=== PATIENT | male | born 1950 | race Caucasian/White ===

== ENCOUNTER 2024-01-10 10:05 | Inpatient (IN) | payer MEDICARE ==
[~2024-01-10] VITALS: Ht 172.7 cm; Wt 78.4 kg
[2024-01-10] VITALS (7 sets, daily range): BP systolic 117–145; BP diastolic 72–83; PULSE 64–82; TEMP 98.2–98.9
--- NOTE | 2024-01-10 09:40 | NUR ---
PT ARRIVES TO ICU 1 VIA EMS FROM [facility] ED. PT BEING ADMITTED FOR UROSEPSIS. UPON ARRIVAL PT IS ALERT AND ORIENTED. ABLE TO WALK FROM STRETCHER TO BED. PIV TO RIGHT AC; SALINE LOCKED. VITAL SIGNS STABLE. PT ARRIVED WITH CLOTHING BUT NO OTHER BELONINGS. PT DENIES PAIN AT THIS TIME BUT DOES COMPLAIN OF FEELING UNWELL OVERALL. ATTEMPTED TO VOID BUT WAS UNSUCCESSFUL. PT INSTRUCTED TO CALL FOR ASSISTANCE; CALL LIGHT IN REACH AND BED ALARM ON. DR. LUIS AWARE OF PT'S ARRIVAL.
[2024-01-10] MEDS ORDERED: LASIX 40MG TABL40 MG PO (11:30)
[2024-01-10] MEDS ORDERED: ATIVAN 0.50.5 MG/TAB PO (11:31)
[2024-01-10] MEDS ORDERED: PRIL40 PO (11:32)
[2024-01-10] MEDS ORDERED: METHADONE H10 MG/TAB PO (11:32)
[2024-01-10] MEDS ORDERED: PROZAC40 MG PO (11:33)
[2024-01-10] MEDS ORDERED: LIPITOR20 MG PO (11:33)
[2024-01-10] MEDS ORDERED: ZOFRAN ODT4 MG PO (11:34)
[2024-01-10] MEDS ORDERED: INSLANT SQ (11:34)
[2024-01-10] MEDS ORDERED: COREG 6.256.25 MG/TA PO (11:35)
[2024-01-10] MEDS ORDERED: PLAVIX 75MG TAB75 MG PO (11:36)
[2024-01-10] MEDS ORDERED: BC PAIN RLF 841 EACH PO (11:38)
[2024-01-10 13:22] LABS: HEMOGLOBIN 10.1 g/dl (13.5-18.0); MEAN CELL VOLUME 71 fl (80.0-100.0); MEAN CORPUSCULAR HEMOGLOBIN 22 pg (27-31); MEAN CORPUSCULAR HGB CONC 32 g/dl (33.0-37.0); MEAN PLATELET VOLUME 10.7 fl (7.4-10.4); PLATELET COUNT 151 K/mm3 (130-400); RED BLOOD COUNT 4.51 M/mm3 (4.20-5.60)
[2024-01-10 13:25] LABS: HEMATOCRIT 31.8 % (42.0-52.0)
[2024-01-10 13:37] LABS: CALCIUM 8.8 mg/dL (8.4-10.2); CREATININE, serum 4.31 mg/dL (0.72-1.25)
[2024-01-10] MEDS ORDERED: Furosemide 40 MG TAB PO SCH (13:50)
[2024-01-10] MEDS ORDERED: Clopidogrel 75 MG TAB PO SCH (13:50)
[2024-01-10] MEDS ORDERED: FLUoxetine 20 MG CAP PO SCH (13:50)
[2024-01-10] MEDS ORDERED: cefTRIAXone 1 G in Water For Injection,Sterile 10 ML IV SCH (14:00)
[2024-01-10] MEDS ORDERED: Heparin 1,000 UNITS/ML 10 ML Multi-Dose VIAL ICA SCH (16:15)
[2024-01-10] MEDS ORDERED: Heparin 1,000 UNITS/ML 10 ML Multi-Dose VIAL IV SCH (16:15)
[2024-01-10] MEDS ORDERED: Acetaminophen 325 MG TAB PO PRN (16:45)
[2024-01-10] MEDS ORDERED: Ondansetron 4 MG/2 ML VIAL IV PRN (16:45)
[2024-01-10] MEDS ORDERED: Carvedilol 6.25 MG TAB PO SCH (17:00)
[2024-01-10] MEDS ORDERED: Insulin Lispro (HumaLOG) SQ SCH ×2 (17:10→18:00)
[2024-01-10] MEDS ORDERED: Methadone 10 MG TAB PO PRN (17:15)
[2024-01-10] MEDS ORDERED: Dextrose (Glucose) 15 GM (4 x 3.75 GM) Chewable TABLET PACK PO PRN (17:30)
[2024-01-10] MEDS ORDERED: Glucagon 1 MG VIAL IM PRN (17:30)
[2024-01-10] MEDS ORDERED: Dextrose 50% Water 25 GM/50 ML SYRINGE IV PRN (17:30)
--- NOTE | 2024-01-10 18:00 | NUR ---
Pt up recently from ICU. Pt has had dinner already, stated it didn't taste very good. Informed him that he still has time to order again if he would like something different. Educated him on room service and diet order. Pt having complaints of pain in his back which he states is chronic, PRN pain medication given. Pt is up and steady on his feet. Had pt ambulate some in the halls to ensure his safety. No issues noted.
[2024-01-10 18:05] LABS: URINE APPEARANCE TURBID (CLEAR/HAZY); URINE BLOOD 1+ (NEGATIVE); URINE COLOR YELLOW (YELLOW); URINE GLUCOSE TRACE (NEGATIVE); URINE KETONE NEGATIVE (NEGATIVE); URINE NITRATE NEGATIVE (NEGATIVE); URINE PROTEIN(semi-quant) 3+ (NEGATIVE)
[2024-01-10 18:12] LABS: COLLECTION METHOD CLEAN CATCH
[2024-01-10] MEDS ORDERED: Atorvastatin 20 MG TAB PO SCH (21:00)
[2024-01-11] VITALS (12 sets, daily range): BP systolic 101–154; BP diastolic 68–92; PULSE 63–72; TEMP 98–98.9
--- NOTE | 2024-01-11 00:47 | NUR ---
patient lying in bed alert and oriented x4. denies chest pain and shortness of breath. reports pain rated 7/10 in rib sides and mid back, per request methadone given at 2340. IV in LAC is patent, site is clean dry and intact. small scattered bruising on extremities and abd, right chest dialysis catheter with gauze dressing is clean dry and intact noted. ambulating with steady gait. pt has no further needs, questions or concerns at this time. call light within reach. will continue to monitor. 0047- Dr. Hodgson notified of positive blood cultures, new orders placed at this time.
[2024-01-11] MEDS ORDERED: *Vancomycin Dosing Protocol IV SCH (01:15)
[2024-01-11] MEDS ORDERED: Vancomycin 1.5 GM,Special Dose/Pharmacy Prepared 1.5 GM in NS 250 ML IV ONE (02:00)
--- NOTE | 2024-01-11 03:27 | NUR ---
Vancomycin Initial Dosing Pharmacy Note Ordering provider: Julia Hodgson MD Indication/duration: Blood stream infection Relevant comorbidities: HTN, DM, ESRD on dialysis MWF LABS: WBC = 27.0, Gr+ cocci in pairs and chains, Gr- rods from [facility] Recommendation: Will dose based on levels. Loading dose: 1.5 grams Maintenance dose: based on levels. Trough goal: 15-20 ug/mL
[2024-01-11 06:53] LABS: BASO # 0.1 K/mm3 (0.0-0.2); BASO % 0.4 % (0.0-2.0); EOS # 0.1 K/mm3 (0.0-0.7); EOS % 0.8 % (0.0-4.0); GRAN # 12.5 K/mm3 (1.4-6.5); GRAN % 85.9 % (42.2-75.2); LYMPH # 1.1 K/mm3 (1.2-3.4); LYMPH % 7.2 % (20.0-51.0); MEAN CELL VOLUME 72 fl (80.0-100.0); MEAN CORPUSCULAR HGB CONC 32 g/dl (33.0-37.0); MONO # 0.8 K/mm3 (0.1-0.6); MONO % 5.2 % (1.7-9.3); PLATELET COUNT 157 K/mm3 (130-400); RED BLOOD COUNT 4.27 M/mm3 (4.20-5.60); REDCELL DISTRIBUTION WIDTH-CV 17.2 % (11.5-14.5)
[2024-01-11 06:54] LABS: HEMATOCRIT 30.6 % (42.0-52.0); HEMOGLOBIN 9.7 g/dl (13.5-18.0); MEAN CORPUSCULAR HEMOGLOBIN 23 pg (27-31)
[2024-01-11 07:13] LABS: ALBUMIN 2.6 g/dL (3.4-4.8); CREATININE, serum 4.66 mg/dL (0.72-1.25); MAGNESIUM 1.7 mg/dL (1.6-2.6); PHOSPHOROUS 4.3 mg/dL (2.3-4.7); POTASSIUM 4.6 mEq/L (3.5-4.5)
--- NOTE | 2024-01-11 11:37 | NUR ---
Dialysis Note Pt arrived to tx via WC. Uf goal was set for 2.0 kg and 2.0 kg removed. Pt tolerated tx well and dcd back to room via WC.
[2024-01-11] MEDS ORDERED: cefTRIAXone 2 G in Water For Injection,Sterile 20 ML IV SCH (14:00)
--- NOTE | 2024-01-11 15:01 | NUR ---
Data Storage Specialist met with patient to discuss discharge planning. Patient lives in [place] with his "common law" , Rosalie (ph#[phone]) although patient stated they are not legally. Rosalie was on the phone with patient during intake and confirmed. Patient sees Dr. Adams for primary care and goes to [facility] for his medications. Patient reported no difficulties affording his medications. Patient does not use any DME and is independent with ADLS. Patient goes to [facility]. Patient plans to return home at time of discharge. SW discussed DPOA-HC with patient and he would like to complete one designating Rosalie and Rosalie's daughter, Char. SW assisted patient in completing the form, then SW and PCT provided witness signature. ELYSIA placed copy in chart, then provided original and copies to patient. Discharge Plan; Home
--- NOTE | 2024-01-11 23:33 | NUR ---
patient lying in bed, alert and oriented x4. denies chest pain and shortness of breath. IV in LAC is patent, site is clean dry and intact. right chest dialysisi is clean dry and intact, small general scattered bruising on extremities and abd noted. pt has no further needs, questions, or concerns at this time. ambulating with a steady gait. call light within reach. per patient request all four side rails up on bed, pt educated on getting in and out of bed safely and getting side rail down as needed, pt able to verbally understodd and show nurse safe educated practices. will continue to monitor.
[2024-01-12] VITALS (14 sets, daily range): BP systolic 105–192; BP diastolic 53–91; PULSE 63–86; TEMP 97.5–99.7
[2024-01-12] MEDS ORDERED: Omeprazole 40 MG **** subs to Pantoprazole 40 MG PO SCH (07:00)
[2024-01-12 07:05] LABS: BASO % 0.4 % (0.0-2.0); EOS # 0.1 K/mm3 (0.0-0.7); EOS % 1.1 % (0.0-4.0); GRAN # 7.1 K/mm3 (1.4-6.5); GRAN % 75.8 % (42.2-75.2); LYMPH # 1.2 K/mm3 (1.2-3.4); LYMPH % 12.3 % (20.0-51.0); MEAN CELL VOLUME 69 fl (80.0-100.0); MEAN CORPUSCULAR HGB CONC 33 g/dl (33.0-37.0); MONO # 0.9 K/mm3 (0.1-0.6); MONO % 9.9 % (1.7-9.3); PLATELET COUNT 146 K/mm3 (130-400); RED BLOOD COUNT 4.22 M/mm3 (4.20-5.60)
[2024-01-12 07:08] LABS: HEMATOCRIT 29.3 % (42.0-52.0); HEMOGLOBIN 9.6 g/dl (13.5-18.0); MEAN CORPUSCULAR HEMOGLOBIN 23 pg (27-31)
--- NOTE | 2024-01-12 07:30 | NUR ---
Patient resting in bed, alert and oriented x 3, states he had a good night. Report received from night RN. No further needs at this time. Call light within reach.
[2024-01-12 07:31] LABS: ALBUMIN 2.6 g/dL (3.4-4.8); CREATININE, serum 3.72 mg/dL (0.72-1.25); MAGNESIUM 1.8 mg/dL (1.6-2.6); PHOSPHOROUS 3.6 mg/dL (2.3-4.7); POTASSIUM 4.3 mEq/L (3.5-4.5)
--- NOTE | 2024-01-12 09:28 | NUR ---
Coffee Grower attended clinical rounds with the team and patient will not be discharged as his culture results are still pending from another hospital.
[2024-01-12] MEDS ORDERED: Carvedilol 6.25 MG TAB PO ONE ×2 (09:30→10:15)
--- NOTE | 2024-01-12 11:42 | NUR ---
Data: Patient accepted Coverage Specialist Rn visit offered during Coverage Specialist Rn rounds. Patient reviewed his life with Coverage Specialist Rn. Patient was "Scientology" as a child and does not regularly attend restorationism as an adult. Assessment: Patient is aggitated about his health situation. Patient is seeking answers from God. Plan of Care: Coverage Specialist Rn provided a bible, with a bookmark at a specific location as discussed with Patient. Patient thanked Coverage Specialist Rn for the discussion and forthe Bible. Coverage Specialist Rn witnessed Patient reading the bible when passing the room at a later time. Chaplains will remain available as needed/requested while Beau is admitted to this hospital. Coverage Specialist Rn also offered a prayer for those topics discussed.
[2024-01-12] MEDS ORDERED: Carvedilol 6.25 MG TAB PO SCH (17:00)
[2024-01-12] MEDS ORDERED: Heparin 1,000 UNITS/ML 10 ML Multi-Dose VIAL ICA SCH (18:00)
[2024-01-12] MEDS ORDERED: Heparin 1,000 UNITS/ML 10 ML Multi-Dose VIAL IV SCH (18:00)
--- NOTE | 2024-01-12 19:30 | NUR ---
PATIENT RESTING IN BED WITH TV ON WITH NO FAMILY PRESENT WITH NO ACUTE DISTRESS NOTED. PATIENT ON ROOM AIR. INT TO LEFT AC INTACT WITH NO COMPLICATIONS NOTED. RIGHT UPPER CHEST DIALYSIS CATHETER INTACT WITH NO COMPLICATIONS NOTED. TELEMETRY INTACT. PATIENT REQUESTED ICE FOR WATER. PITCHER FILLED WITH ICE. PATIENT CARE ASSUMED FROM BRENDA. PATIENT DENIES ANY OTHER NEEDS. BED IN LOW POSITION WITH WHEELS LOCKED WITH RAILS UP X3 AND CALL LIGHT WITHIN REACH.
--- NOTE | 2024-01-12 19:40 | NUR ---
PATIENT RESTING IN BED WITH TV ON WITH NO FAMILY PRESENT WITH NO ACUTE DISTRESS NOTED. PATIENT ON ROOM AIR. INT TO LEFT AC INTACT WITH NO COMPLICATIONS NOTED. DIALYSIS CATH INTACT TO RIGHT UPPER CHEST WITH NO COMPLICATIONS NOTED. ASSESSMENT COMPLETED AT THIS TIME. PATIENT DENIES ANY NEEDS. BED IN LOW POSITION WITH WHEELS LOCKED WITH RAILS UP X3 AND CALL LIGHT WITHIN REACH.
--- NOTE | 2024-01-12 21:05 | NUR ---
PATIENT RESTING IN BED WITH TV ON WITH NO FAMILY PRESENT WITH NO ACUTE DISTRESS NOTED. PATIENT ON ROOM AIR. INT TO LEFT AC INTACT WITH NO COMPLICATIONS NOTED. MEDICATION ADMINISTRATION COMPLETED AT THIS TIME. PATIENT TOLERATED WELL. PATIENT STATES PAIN LEVEL IS 7 ON SCALE OF 0 TO 10. PATIENT VERBALIZED UNDERSTANDING THAT PAIN MEDICATION WOULD BE GIVEN WHEN TIME. PATIENT DENIES ANY OTHER NEEDS. BED IN LOW POSITION WITH WHEELS LOCKED WITH RAILS UP X3 AND CALL LIGHT WITHIN REACH.
[2024-01-13 00:15] VITALS: BP_SYST 139
[2024-01-13 04:07] VITALS: BP 147/72; PULSE 61; TEMP 98.1
[2024-01-13 04:13] VITALS: BP_SYST 147
[2024-01-13 07:45] LABS: BASO % 0.5 % (0.0-2.0); EOS # 0.2 K/mm3 (0.0-0.7); EOS % 2.3 % (0.0-4.0); GRAN # 5.4 K/mm3 (1.4-6.5); GRAN % 74.1 % (42.2-75.2); HEMOGLOBIN 10.2 g/dl (13.5-18.0); LYMPH % 12.9 % (20.0-51.0); MEAN CELL VOLUME 72 fl (80.0-100.0); MEAN CORPUSCULAR HEMOGLOBIN 22 pg (27-31); MEAN CORPUSCULAR HGB CONC 31 g/dl (33.0-37.0); MEAN PLATELET VOLUME 11.3 fl (7.4-10.4); MONO # 0.7 K/mm3 (0.1-0.6); MONO % 9.5 % (1.7-9.3); PLATELET COUNT 189 K/mm3 (130-400); RED BLOOD COUNT 4.65 M/mm3 (4.20-5.60); REDCELL DISTRIBUTION WIDTH-CV 17.2 % (11.5-14.5)
[2024-01-13 07:46] LABS: HEMATOCRIT 33.4 % (42.0-52.0)
--- NOTE | 2024-01-13 07:50 | NUR ---
patient alert and oriented x4. patient denies any pain at this time. patient just had breakfast and this nurse will be taking patient to dialysis. call light within reach. bed at lowest position.
--- NOTE | 2024-01-13 07:50 | NUR ---
patient discharge given. patient was not interested in the discharge directions. patient denied any questions. patient iv and tele removed. patient was rushing family members and this nurse because he wanted to go home as soon as possible. Patient escorted out of unit by family member and PCT.
[2024-01-13 07:57] VITALS: BP 110/68; PULSE 58; TEMP 98.5
[2024-01-13 08:06] LABS: ALBUMIN 2.9 g/dL (3.4-4.8); CALCIUM 9.1 mg/dL (8.4-10.2); CREATININE, serum 4.2 mg/dL (0.72-1.25); MAGNESIUM 1.9 mg/dL (1.6-2.6); PHOSPHOROUS 4.2 mg/dL (2.3-4.7); POTASSIUM 4.8 mEq/L (3.5-4.5)
[2024-01-13 09:00] VITALS: BP_SYST 147
[2024-01-13] MEDS ORDERED: CIPRO 500MG TA500 MG PO (11:10)
[2024-01-13] MEDS ORDERED: COREG12.5 MG PO (11:11)
--- NOTE | 2024-01-13 11:14 | NUR ---
Dialysis Note Pt Arrived via WC. Uf goal set for 2.0 kg and 2.0 kg removed. Pt tolerated tx well. Pt dcd back to room via WC.
[2024-01-13] MEDS ORDERED: Ciprofloxacin 500 MG TAB PO ONE (11:15)
--- NOTE | 2024-01-13 11:55 | NUR ---
patient refused vitals and glucose reading. patient want to go home now. patient instructed that this nurse must way on the discharge orders to be printed in order to give the discharge instructions to patient. patient said ok but remained with upset face expression. call light within reach. bed at lowest position.
--- NOTE | 2024-01-13 13:11 | NUR ---
Rn Palliative met with patient to present and review IM form. Patient verbalized understanding and provided signature. SW placed form in chart and provided copy to patient, who will discharge home today.
== END 2024-01-13 13:25 | disposition home or self-care (01) | DRG 689 ==
LOC: ICU 10:05 → MEDICAL 11:06 → ICU 11:06 → MEDICAL 17:30
PROVIDERS: ADMIT Internal Medicine
DX: N39.0 Urinary tract infection, site not specified (principal); G93.41 Metabolic encephalopathy; N18.6 End stage renal disease; R78.81 Bacteremia; I12.0 Hypertensive chronic kidney disease with stage 5 chronic kidney disease or end stage renal disease; E87.5 Hyperkalemia; D50.9 Iron deficiency anemia, unspecified; E11.649 Type 2 diabetes mellitus with hypoglycemia without coma; B96.89 Other specified bacterial agents as the cause of diseases classified elsewhere; F17.210 Nicotine dependence, cigarettes, uncomplicated; E11.22 Type 2 diabetes mellitus with diabetic chronic kidney disease; I25.10 Atherosclerotic heart disease of native coronary artery without angina pectoris; E78.5 Hyperlipidemia, unspecified; G89.29 Other chronic pain; F32.A Depression, unspecified; K21.9 Gastro-esophageal reflux disease without esophagitis; Z99.2 Dependence on renal dialysis; Z79.899 Other long term (current) drug therapy; Z79.02 Long term (current) use of antithrombotics/antiplatelets; Z79.4 Long term (current) use of insulin; Z79.82 Long term (current) use of aspirin
CPT/HCPCS: J0696; J1644; J1815; J3370; J7050; Q3014

== ENCOUNTER 2024-01-15 03:47 | Inpatient (IN) | payer MEDICARE ==
[2024-01-15] VITALS (11 sets, daily range): BP systolic 87–128; BP diastolic 45–72; PULSE 54–86; TEMP 97.8–99.3
[~2024-01-15] VITALS: Ht 172.7 cm; Wt 78.6 kg
[~2024-01-15 03:47] MED LIST: ATIVAN 0.50.5 MG/TAB PO; BC PAIN RLF 841 EACH PO; CIPRO 500MG TA500 MG PO; COREG 6.256.25 MG/TA PO; COREG12.5 MG PO; INSLANT SQ; LASIX 40MG TABL40 MG PO; LIPITOR20 MG PO; METHADONE H10 MG/TAB PO; PLAVIX 75MG TAB75 MG PO; PRIL40 PO; PROZAC40 MG PO; ZOFRAN ODT4 MG PO
[2024-01-15] MEDS ORDERED: NS 1,000 ML IV SCH (04:30)
[2024-01-15] MEDS ORDERED: Acetaminophen 325 MG TAB PO PRN (04:30)
[2024-01-15] MEDS ORDERED: Methadone 10 MG TAB PO PRN (04:45)
[2024-01-15] MEDS ORDERED: LORazepam 0.5 MG TAB PO PRN (04:45)
--- NOTE | 2024-01-15 04:49 | NUR ---
REPORT RECIEVED FROM HOMA SMART AT [facility]. HOMA REPORTED THAT PATIENT HAD JUST LEFT BY EMS.
--- NOTE | 2024-01-15 05:23 | NUR ---
MALE PATIENT ARRIVED TO ROOM #348 VIA STRETCHER FROM [facility]. PATIENT ASSISTED TO BED WITH STAND BY ASSIST. GAIT STEADY. PATIENT ALERT AND ORIENTED X2 WITH MILD CONFUSION. INT TO LEFT AC WITH NO COMPLICATIONS NOTED. YAMILET RUIZ WESTERN PHILOSOPHY PROFESSOR INTO SEE PATINET. PATIENT REQUESTED WATER AND WAS GIVEN. PATIENT VERBALIZED UNDERSTANDING OF BED CONTROLS AND CALL LIGHT. PATIENT DENIES ANY OTHER NEEDS AT THIS TIME. BED IN LOW POSITION WITH WHEELS LOCKED WITH RAILS UP X3 AND CALL LIGHT WITHIN REACH. BED ALARM ON.
[2024-01-15] MEDS ORDERED: Glucagon 1 MG VIAL IM PRN (07:00)
[2024-01-15] MEDS ORDERED: Dextrose 50% Water 25 GM/50 ML SYRINGE IV PRN (07:00)
[2024-01-15] MEDS ORDERED: Dextrose (Glucose) 15 GM (4 x 3.75 GM) Chewable TABLET PACK PO PRN (07:00)
[2024-01-15] MEDS ORDERED: Carvedilol 6.25 MG TAB PO SCH (08:00)
[2024-01-15] MEDS ORDERED: Insulin Lispro (HumaLOG) SQ SCH (08:00)
[2024-01-15] MEDS ORDERED: Heparin 5,000 UNITS/ML 1 ML VIAL SQ SCH (08:00)
--- NOTE | 2024-01-15 08:40 | NUR ---
Pt doing okay. He is getting up often to go to the bathroom and is getting upset that the bed alarm is set. Explained to him that it is for his safety, pt was still unhappy. Moved pt to a room closer to the desk so that we could watch him closer. Pt is steady on his feet and is not a fall risk due to that. Pt is partially oriented and concerned him leaving his room unknowingly. Pt having some pain complaints in his abd and his back. PT has gone down for CT. No other needs at this time
[2024-01-15 08:47] LABS: BASO % 0.3 % (0.0-2.0); EOS % 0.2 % (0.0-4.0); HEMOGLOBIN 10.4 g/dl (13.5-18.0); LYMPH # 1.1 K/mm3 (1.2-3.4); LYMPH % 8.5 % (20.0-51.0); MEAN CELL VOLUME 70 fl (80.0-100.0); MEAN CORPUSCULAR HEMOGLOBIN 22 pg (27-31); MEAN CORPUSCULAR HGB CONC 32 g/dl (33.0-37.0); MONO % 7.4 % (1.7-9.3); PLATELET COUNT 187 K/mm3 (130-400); RED BLOOD COUNT 4.68 M/mm3 (4.20-5.60); REDCELL DISTRIBUTION WIDTH-CV 17.4 % (11.5-14.5)
[2024-01-15 08:50] LABS: HEMATOCRIT 32.6 % (42.0-52.0)
[2024-01-15] MEDS ORDERED: Clopidogrel 75 MG TAB PO SCH (09:00)
[2024-01-15] MEDS ORDERED: FLUoxetine 20 MG CAP PO SCH (09:00)
[2024-01-15] MEDS ORDERED: Pantoprazole 40 MG in NS 10 ML IV SCH (09:00)
[2024-01-15] MEDS ORDERED: Furosemide 40 MG TAB PO SCH (09:00)
[2024-01-15 09:13] LABS: CALCIUM 8.7 mg/dL (8.4-10.2); CREATININE, serum 5.06 mg/dL (0.72-1.25); POTASSIUM 4.1 mEq/L (3.5-4.5)
[2024-01-15 09:55] LABS: CLOSTRIDIUM DIFF A/B NEG
[2024-01-15] MEDS ORDERED: Loperamide 2 MG CAP PO PRN (10:15)
[2024-01-15] MEDS ORDERED: Loperamide 2 MG CAP PO ONE (10:15)
--- NOTE | 2024-01-15 10:30 | NUR ---
Pt moved closer to the desk as he continued to get up without ringing staff. Pt continued to be steady on his feet, but having to go to the bathroom quickly due to diarrhea. Pt reports that he has fallen, but that it has been several months. He does have a bruise on his knee, unsure what from and he didn't know. I have talked with family. Daughter called first thing this am wanting updates and wanting to be called when pt gets discharged.
--- NOTE | 2024-01-15 10:54 | NUR ---
Clarifying Plant Operator met with patient to complete intake assessment. Patient is a readmission after having discharged to home two days ago. Patient stated "I guess I left too soon." Patient verified that he lives at home with his life partner Rosalie ([phone]) and his daughter Char and his 5 year old granddaughter. Patient completed DPOA document at previous admission and named Rosalie as his DPOA and Char as alternate. Patient sees Dr. Kev Adams as his PCP and uses [facility] pharmacy in [place] without difficulty affording medications. Patient uses no DME, drives himself and is independent. Patient goes to [facility] for dialysis MWF. Patient denies any discharge needs at this time. Discharge plan: Home
--- NOTE | 2024-01-15 13:19 | NUR ---
Pt continues to have diarrhea, but frequency has slowed down. Pt having some complaints of pain in his back and abdomen. just called with same questions/comments as daughter this am. also stated that she wanted to be called by staff prior to discharge. Discussed that daughter also had same statement. , Rosalie stated that they have the same number. No other needs at this time
[2024-01-15] MEDS ORDERED: Heparin 1,000 UNITS/ML 10 ML Multi-Dose VIAL ICA SCH (15:15)
[2024-01-15] MEDS ORDERED: Heparin 1,000 UNITS/ML 10 ML Multi-Dose VIAL IV SCH (15:15)
[2024-01-15] MEDS ORDERED: Cefepime 2 G in Water For Injection,Sterile 20 ML IV SCH (16:30)
[2024-01-15] MEDS ORDERED: Cefepime 1 G in Water For Injection,Sterile 10 ML IV SCH (17:00)
--- NOTE | 2024-01-15 19:00 | NUR ---
Pt has not been able to void yet for UA. Pt does have urinal for when he is able to go. Pt doing well otherwise
--- NOTE | 2024-01-15 19:43 | NUR ---
RECEIVED CHANGE OF SHIFT REPORT FROM DAY SHIFT NURSE. NO NEEDS VOICED AT TIME OF REPORT. CONTINUES ON CONTACT ISOLATION PENDING STOOL CULTURES
[2024-01-15] MEDS ORDERED: Atorvastatin 20 MG TAB PO SCH (21:00)
[2024-01-15 21:56] LABS: COLLECTION METHOD CLEAN CATCH
[2024-01-15 22:04] LABS: URINE APPEARANCE CLOUDY (CLEAR/HAZY); URINE BLOOD 1+ (NEGATIVE); URINE COLOR YELLOW (YELLOW); URINE GLUCOSE NEGATIVE (NEGATIVE); URINE KETONE NEGATIVE (NEGATIVE); URINE NITRATE NEGATIVE (NEGATIVE); URINE PROTEIN(semi-quant) 2+ (NEGATIVE); URINE UROBILINOGEN 0.2 E.U/dL (0.2-1.0)
--- NOTE | 2024-01-15 23:30 | NUR ---
PATIENT AGREEABLE TO HAVE VS TAKEN, REPORTS HE IS TRYING TO SLEEP AND IS BEING WAKEN EVERY TWO HOURS AND REFUSES TO BE WAKEN ANY FURTHER DURING THE NIGHT UNTIL 6 AM, DESPITE PATIENT BEING INFORMED OF DR ORDERS THAT TREATMENTS ARE ORDERED.
[2024-01-16] VITALS (16 sets, daily range): BP systolic 100–146; BP diastolic 64–91; PULSE 55–78; TEMP 97.5–98.8
[2024-01-16 06:30] LABS: BASO % 0.3 % (0.0-2.0); EOS # 0.1 K/mm3 (0.0-0.7); GRAN # 4.8 K/mm3 (1.4-6.5); GRAN % 66.9 % (42.2-75.2); LYMPH # 1.5 K/mm3 (1.2-3.4); LYMPH % 20.8 % (20.0-51.0); MEAN CELL VOLUME 70 fl (80.0-100.0); MEAN CORPUSCULAR HGB CONC 32 g/dl (33.0-37.0); MEAN PLATELET VOLUME 11.2 fl (7.4-10.4); MONO # 0.7 K/mm3 (0.1-0.6); MONO % 9.6 % (1.7-9.3); PLATELET COUNT 182 K/mm3 (130-400); RED BLOOD COUNT 4.25 M/mm3 (4.20-5.60); REDCELL DISTRIBUTION WIDTH-CV 17.6 % (11.5-14.5)
[2024-01-16 06:32] LABS: HEMATOCRIT 29.8 % (42.0-52.0); HEMOGLOBIN 9.5 g/dl (13.5-18.0); MEAN CORPUSCULAR HEMOGLOBIN 22 pg (27-31)
[2024-01-16 06:48] LABS: CALCIUM 8.2 mg/dL (8.4-10.2); CREATININE, serum 5.55 mg/dL (0.72-1.25); POTASSIUM 3.9 mEq/L (3.5-4.5)
--- NOTE | 2024-01-16 07:16 | NUR ---
CHANGE OF SHIFT REPORT GIVEN TO DAY SHIFT NURSEGENE.
--- NOTE | 2024-01-16 08:02 | NUR ---
Pt laying in bed. A&Ox3. VSS. S1S2. Clear lungs on RA. ABD is flat, soft, non-tender. pt reproting mild cramping but denies n/v, headache, dizziness, pain. Palpable pulses in all extremities with normal strength. IV in L AC is patent, INT. Dialysis cath in R chest is CDI with transparent dressing. Dialysis consent signed and Pt ambulated down to Dialysis.
--- NOTE | 2024-01-16 11:09 | NUR ---
Dialysis Note Pt arrived to unit via WC. Uf goal set for 2.0 amd decreaased to 1.3 d/t drop in bp. Pt tolerated tx well and dcd back to room without complaint.
--- NOTE | 2024-01-16 11:33 | NUR ---
Pt requesting to speak with provider. Wishing to go home.
--- NOTE | 2024-01-16 11:59 | NUR ---
Spoke with Pt's (Rosalie), she reported Pt is worked up and wondering if he was able to get some of his anxiety medication. Pt's is DPOA and does not want Pt to come home as she does not feel he is ready and she feels he will end up being reamiditted. Talked with Pt, Pt is pacing in room. Offerred anxiety meds to Pt, Pt declined stating he is not anxious. Pt stating he wants to leave and "if he stares at this wall or TV any longer he will lose it." Talked with Pt and able to get Pt to sit on bed. Pt stating he does not feel there is anything we are doing here that he can't do at home. Offerred puzzle pages, etc to Pt - Pt declined. Pt says he was told all he has to do is sign a paper to leave and wishing to speak with doctor to leave. Explained the provider will be in to see him when he is able to. No further needs at this time. Call light in reach.
[2024-01-16] MEDS ORDERED: Sodium Bicarbonate 650 MG TAB PO SCH (13:00)
--- NOTE | 2024-01-16 15:41 | NUR ---
pet care worker was notified by Dr. Murillo that patient was wanting to leave AMA. SW attempted to contact patient's , Rosalie, no answer. SW received a call back from patient's daughter. SW explained she was attempting to reach them regarding the patient wanting to leave AMA to ensure they were aware but it appears nursing has been in contact with them. Patient's started speaking on the phone whom expressed the hospital was not to release the patient without her permission as she was DPOA-HC. ELYSIA explained that only goes into affect if patient does not have decision making capacity. ELYSIA explained patient would need transportation from the hospital which would be his family but they are unable to hold patient here if he wanted to leave it would be against medical advice. Patient's daughter expressed they were on their way home and would discuss this but they did not want patient leaving the hospital today. They expressed they would be in contact with the hospital. Discharge plan: Home
[2024-01-16] MEDS ORDERED: Azithromycin 250 MG TAB PO SCH (16:40)
--- NOTE | 2024-01-16 19:00 | NUR ---
RECEIVED CHANGE OF SHIFT REPORT FROM DAY SHIFT NURSE. CONTACT ISOLATION CONTINUES, PATIENT RESTING IN BED WITH NO NEEDS VOICED AT TIME OF REPORT. INT IN PLACE TO LAC, DIALYSIS CATH IN PLACE TO RIGHT CHEST WITH TEGADERM DRSG IN PLACE/NO BLEEDING/DRAINAGE OBSERVED.
--- NOTE | 2024-01-16 20:30 | NUR ---
PATIENT REPORTS STILL PASSING LOOSE STOOLS, SEE MAR FOR IMMODIUM GIVEN.
--- NOTE | 2024-01-16 20:50 | NUR ---
REPORTED HEADACHE TO FOREHEAD AREA, BP CHECK, SEE MEDITECH. REQUESTED AND GIVEN TYLENOL.
--- NOTE | 2024-01-16 21:45 | NUR ---
PATIENT REQUESTED AND GIVEN IMMODIUM AFTER REPORTING THAT HE IS STILL HAVING LOOSE STOOLS, WAS ABLE TO OBSERVED X2 STOOLS, OBSERVED HIGHLY COLORED YELLOWISH GREENISH CLOUDY STOOL WITH FEW SCATTERED BROWNISH FLECKS DEBRIS FLOATING IN TOILET, PATIENT STATED HE HAD PASSED ALOT OF GAS. SEE MAR FOR MEDS GIVEN.
--- NOTE | 2024-01-16 22:24 | NUR ---
PATIENT REQUESTED AND GIVEN ANOTHER DOSE OF IMMODIUM OF REPORTED LOOSE STOOL, OBSERVED IN TOILET HIGHLY COLORED YELLOWISH GREENISH SOME CLOUDY LIQUID FLOATING IN TOILET WITH SMALL AMOUNT DARKER GREENISH LIQIUD AT BOTTOM OF TOILET. SEE MAR FOR MED GIVEN. DENIES NAUSEA, REPORTS PASSING FLATUS WITH PASSING OF STOOL PER PATIENT. REPORTS THAT HE HAS BEEN EATING AND DRINKING MORE TODAY.
--- NOTE | 2024-01-16 23:03 | NUR ---
PATIENT REPORTS PASSED FLATUS X2 "IT'S CLEAR NOW, JUST GAS" DENIES VOIDING WITH GAS PASSED.
--- NOTE | 2024-01-16 23:51 | NUR ---
PATIENT REPORTED PASSED FLATUS X2 WITH RECTAL DISCHARGE OF GREENISH YELLOW OF SMALL TO MEDIUM AMOUNT INTO TOILET. DENIES NAUSEA AFTER EATING HS SNACKS OF SANDWICH AND JELLO X2. REQUESTING ATIVAN WHEN NEXT AVAILABLE BETWEEN 1230 AND 0100, PATIENT STATING HE WANTS TO BE WOKEN UP FOR DOSE. NO OTHER NEEDS REPORTED AT THIS TIME.
[2024-01-17 00:21] VITALS: BP_SYST 123
--- NOTE | 2024-01-17 01:51 | NUR ---
SEE MAR FOR MEDS GIVEN REQUESTED AND SCHEDULED HEPARIN SUBCUTANEOUS INJECTION. NO OTHER NEEDS VOICED AT THIS TIME.
--- NOTE | 2024-01-17 04:00 | NUR ---
PATIENT RESTING IN BED, EYES CLOSED, BREATHING EVEN/NONLABORED, DOES NOT WAKE DURING NURSE ROUNDING. CALL LIGHT IN REACH. PATIENT HAS BEEN UP INDEPENDENTLY WITH NO OBSERVED DIFFICULTIES OR REPORTED COMPLAINTS OR CONCERNS.
[2024-01-17 05:56] VITALS: BP 140/76; PULSE 62; TEMP 98.3
[2024-01-17 05:59] VITALS: BP_SYST 140
--- NOTE | 2024-01-17 06:01 | NUR ---
PATIENT REPORTS HAD PASS GAS IN BED WITH NO RECTAL DISCHARGE OBSERVED BY PATIENT. PATIENT REPORTS HE "FEELS GOOD". PATIENT REPORTS HE IS READY TO GO HOME. NO OTHER NEEDS VOICED AT THIS TIME.
[2024-01-17 06:49] LABS: BASO % 0.7 % (0.0-2.0); EOS # 0.1 K/mm3 (0.0-0.7); EOS % 1.8 % (0.0-4.0); GRAN # 3.1 K/mm3 (1.4-6.5); GRAN % 54.1 % (42.2-75.2); LYMPH # 1.7 K/mm3 (1.2-3.4); LYMPH % 29.8 % (20.0-51.0); MEAN CELL VOLUME 69 fl (80.0-100.0); MEAN CORPUSCULAR HGB CONC 32 g/dl (33.0-37.0); MEAN PLATELET VOLUME 10.7 fl (7.4-10.4); MONO # 0.7 K/mm3 (0.1-0.6); MONO % 12.2 % (1.7-9.3); PLATELET COUNT 166 K/mm3 (130-400); RED BLOOD COUNT 4.22 M/mm3 (4.20-5.60); REDCELL DISTRIBUTION WIDTH-CV 17.2 % (11.5-14.5)
[2024-01-17 06:55] LABS: HEMATOCRIT 29.1 % (42.0-52.0); HEMOGLOBIN 9.4 g/dl (13.5-18.0); MEAN CORPUSCULAR HEMOGLOBIN 22 pg (27-31)
[2024-01-17 07:08] LABS: CALCIUM 8.1 mg/dL (8.4-10.2); CREATININE, serum 4.09 mg/dL (0.72-1.25); POTASSIUM 3.3 mEq/L (3.5-4.5)
--- NOTE | 2024-01-17 07:09 | NUR ---
CHANGE OF SHIFT REPORT GIVEN TO DAY SHIFT NURSEDEANGELO
[2024-01-17 08:04] VITALS: BP 132/82; PULSE 64; TEMP 98.6
[2024-01-17 08:51] VITALS: BP_SYST 132
[2024-01-17] MEDS ORDERED: LEVAQUIN 750MG750 M1 PO (12:21)
[2024-01-17] MEDS ORDERED: ZITHROMAX500 M2 PO (12:24)
[2024-01-17] MEDS ORDERED: CEFTIN500 MG PO (12:24)
--- NOTE | 2024-01-17 12:58 | NUR ---
Pt aware that he has discharge orders. Informed him to call his family. INT removed from left AC.
--- NOTE | 2024-01-17 13:09 | NUR ---
Reviewed discharge instructions with pt. Pt does not have any clothes here, waiting on his family to bring some. INT removed from left AC. Pt seemed confused as far as taking/picking up antibiotics. Reviewed with him again that he will need to waste picker 2 new medications at [facility] in [place]. Will review again with family when they arrive.
--- NOTE | 2024-01-17 14:03 | NUR ---
Spouse arrived, asked if she had any questions. She stated she did not. Pt escorted out at this time with spouse.
--- NOTE | 2024-01-17 15:37 | NUR ---
culture room worker attended interdisciplinary clinical rounding with Dr. Peralta. Dr. Peralta is waiting on cultures to return to determine if patient needs IV or oral antibiotics. SW was notified patient can return home with oral antibiotics. Discharge plan: Home
== END 2024-01-17 14:00 | disposition home or self-care (01) | DRG 689 ==
LOC: SURG 03:47
PROVIDERS: Internal Medicine; Nurse Practitioner Family; ADMIT Hospitalist
DX: N39.0 Urinary tract infection, site not specified (principal); G93.41 Metabolic encephalopathy; N18.6 End stage renal disease; I12.0 Hypertensive chronic kidney disease with stage 5 chronic kidney disease or end stage renal disease; Z99.2 Dependence on renal dialysis; E11.9 Type 2 diabetes mellitus without complications; Z79.4 Long term (current) use of insulin; E78.5 Hyperlipidemia, unspecified; I25.10 Atherosclerotic heart disease of native coronary artery without angina pectoris; K21.9 Gastro-esophageal reflux disease without esophagitis; G89.29 Other chronic pain; Z79.82 Long term (current) use of aspirin; F17.210 Nicotine dependence, cigarettes, uncomplicated
CPT/HCPCS: C9113; J0692; J1644; Q3014

== ENCOUNTER 2024-05-28 05:44 | Day surgery (SDC) | payer MEDICARE ==
[~2024-05-28] VITALS: Ht 172.7 cm; Wt 35.7 kg
[~2024-05-28 05:44] MED LIST changes: +CEFTIN500 MG PO; +LEVAQUIN 750MG750 M1 PO; +LR 1,000 ML IV SCH; +ZITHROMAX500 M2 PO
[2024-05-28 06:21] VITALS: BP 135/100; PULSE 70; TEMP 98.8
[2024-05-28] MEDS ORDERED: ASPIRIN E.C. 8181 MG PO (06:39)
[2024-05-28] MEDS ORDERED: NARCAN4 MG NS (06:41)
--- NOTE | 2024-05-28 07:08 | NUR ---
Pt admitted to to ambulatory bay 2 at 0552. Consents signed. Medications, allergies, and pharmacy confirmed. Admission assessments complete. Dialysis catheter noted to right chest. 20G IV inserted into right hand, fluids infusing as ordered. Blood sugar obtained. Labs drawn and sent to lab. Upper dentures in- cup given to patient to take out. Dressing to right knee noted, pt reports recent fall with abrasion, dressing not removed per his request. Cart in low position. Call light within reach. Spouse at bedside.
[2024-05-28] MEDS ORDERED: fentaNYL 50 MCG/ML 2 ML VIAL ONE (07:11)
[2024-05-28] MEDS ORDERED: Rocuronium 50 MG/5 ML Multi-Dose VIAL ONE (07:11)
[2024-05-28] MEDS ORDERED: dexAMETHasone 10 MG/ML VIAL ONE (07:13)
[2024-05-28] MEDS ORDERED: Glycopyrrolate 0.2 MG/ML 1 ML VIAL ONE (07:13)
[2024-05-28] MEDS ORDERED: Ondansetron 4 MG/2 ML VIAL ONE (07:13)
[2024-05-28] MEDS ORDERED: NS 10 ML IV ONE ×2 (07:13→07:36)
[2024-05-28] MEDS ORDERED: Lidocaine PF 2% (20 MG/ML) 5 ML VIAL ONE (07:14)
[2024-05-28] MEDS ORDERED: NS 100 ML IV ONE (07:14)
--- NOTE | 2024-05-28 07:38 | NUR ---
Dr. Bedoya here to see patient prior to surgery, updated that we have not received an H&P for the patient. Report given to OR nurse.
[2024-05-28 07:40] LABS: CALCIUM 8.1 mg/dL (8.4-10.2); CREATININE, serum 4.11 mg/dL (0.72-1.25); POTASSIUM 4.4 mEq/L (3.5-4.5)
--- NOTE | 2024-05-28 07:43 | NUR ---
Lab results reported to Joyce HERNANDEZ.
[2024-05-28] MEDS ORDERED: Topical Skin Adhesive 1 EACH (1 ML) TOP ONE (08:15)
[2024-05-28] MEDS ORDERED: TYLENOL 500MG500 MG PO (09:50)
[2024-05-28] MEDS ORDERED: Ondansetron 4 MG/2 ML VIAL IV PRN (10:00)
[2024-05-28] MEDS ORDERED: fentaNYL 50 MCG/ML 1 ML SYRINGE/VIAL [PACU/SDC ONLY] IV PRN (10:00)
[2024-05-28] MEDS ORDERED: hydrALAZINE 20 MG/ML 1 ML VIAL IV PRN (10:00)
[2024-05-28 10:30] VITALS: BP 134/75; PULSE 71; TEMP 97.3
[2024-05-28 10:45] VITALS: BP 135/71; PULSE 68
--- NOTE | 2024-05-28 12:08 | NUR ---
1030- PT BACK TO BAY 2 FROM PACU VIA CART. MONITORS ON AND ALARMS SET. REPORT RECIEVED FROM BERRY ASTORGA. PT ALERT AND ORIENTED. AT [facility]. PT REQUESTING FOOD. CALL LIGHT WITHIN REACH. NO OTHER NEEDS AT THIS TIME. 1045- PT TAKING FOOD AND SIPS OF WATER WELL. NO COMPLICATIONS NOTED. 1125- DISCHARGE PAPERWORK GIVEN TO PT WITH THERE. ALL QUESTIONS ANSWERED. 1135- PT TRANSFERRED OUT OF THE HOSPITAL VIA WHEELCHAIR TAKEN TO OWN PRIVATE VEHICLE DRIVEN BY .
== END 2024-05-28 11:35 | disposition home or self-care (01) ==
LOC: SDCO 05:44
PROVIDERS: Nurse Anesthetist, Certified Registered
DX: I12.0 Hypertensive chronic kidney disease with stage 5 chronic kidney disease or end stage renal disease (principal); E11.22 Type 2 diabetes mellitus with diabetic chronic kidney disease; N18.6 End stage renal disease; F17.210 Nicotine dependence, cigarettes, uncomplicated; Z79.84 Long term (current) use of oral hypoglycemic drugs; Z79.4 Long term (current) use of insulin; Z99.2 Dependence on renal dialysis
CPT/HCPCS: J0665; J0690; J1100; J1644; J1720; J2405; J2704; J3010; J7120